=== PATIENT | male | born 1960 | race Caucasian/White ===

== ENCOUNTER 2024-10-23 07:13 | Emergency (ER) | payer MEDICARE, MEDICAID, SELFPAY ==
[2024-10-23 07:14] VITALS: BMI 19.6
[2024-10-23 07:24] VITALS: BP 145/78; PULSE 97; RESP 16; TEMP 36.6; O2SAT 89; BMI 23.0
--- NOTE | 2024-10-23 07:41 | PD.EDADULT ---
ED General RME/HPI General Chief complaint: General Adult/Misc Complain Stated complaint: NEEDS REFILL ON INHALER Time Seen by Provider: 10/23/24 07:21 Arrival date/time: 10/23/24 07:13 64 year old male present to emergency room with c/o of medication refill. pt report pcp was supposed to sent his albuterol and trelegy ellipta but never did. he has not inhaler for 2 weeks. which prompt patient to come to ED for refills. pt report his baseline sp02 is 90% and uses 3 liter NC daily. pt did not bring oxygen to ER. SEVERITY: Symptoms are described as being severe with limitations on activities of daily living CONTEXT: The patient is unable to identify any inciting events. DURATION/TIMING: The symptoms started approximately 2 weeks ASSOCIATED SYMPTOMS: The patient is unable to identify any other associated symptoms. MODIFYING FACTORS: The patient is unable to identify any alleviating or aggravating symptoms. PERTINENT ROS: no fevers, no pleuritic pain, no ripping or tearing sensations, denies any lower extremity edema and no unilateral swelling, no chest pain no nausea,vomiting, diarrhea, no dizziness/headache no rash no loc/syncope episode REVIEW OF SYSTEMS: See History of Present Illness - with the exception of those mentioned in the history of present illness, all other systems reviewed and reported as negative GENERAL: In general the patient is awake, interactive, in an emergency department gurney. HEAD/EYES/EARS/NOSE/THROAT: normo-cephalic, atraumatic, mucus membranes are moist, anicteric, palpebral conjunctiva is pink, trachea is midline. CARDIOVASCULAR: regular rate and regular rhythm, no murmurs, heart sounds are not distant, strong pulses in all four extremities that are equal and symmetric bilateral upper and lower extremities, normal capillary refill. CHEST/PULMONARY: normal chest rise and fall, good air movement, clear to auscultation bilaterally, normal inspiratory to expiratory ratios without evidence of respiratory distress. NECK: No midline/Paraspinal tenderness, no step off ROM/Strenght intact No Kernig and bruzinski sign. No trauma ABDOMEN: soft, not tender, no masses appreciated BACK: normal range of motion without pain. NEUROLOGICAL: cranio-facial features are symmetric, moves all four extremities equally without obvious limitations or weakness. EXTREMITY: no tenderness to palpation over the long bones or large joints of the bilateral upper and lower extremities, no joint swelling, no joint erythema, no signs of trauma, no unilateral leg swelling and no peripheral edema. SKIN: warm, dry, well-perfused, no jaundice, no rash, no telangiectasias or petechia. PSYCH: calm, cooperative, no evidence of psychosis or agitation Related Data Home Medications ?Medication ?Instructions ?Recorded ?Confirmed fluoxetine 40 mg capsule 40 mg PO TID 03/27/20 06/09/24 pantoprazole 40 mg tablet,delayed 40 mg PO QDAY 03/27/20 06/09/24 release pregabalin 75 mg capsule 75 mg PO BID 03/27/20 06/09/24 fluticasone fur. 100 mcg-umeclid 1 inh inhalation BID 08/18/20 06/09/24 62.5 mcg-vilant 25 mcg inhalat.powder (Trelegy Ellipta) furosemide 20 mg tablet 20 mg PO QDAY 06/27/21 06/09/24 ondansetron HCl 4 mg tablet 4 mg PO Q6H PRN Nausea 06/27/21 06/09/24 potassium chloride 8 mEq 8 meq PO QDAY 06/27/21 06/09/24 tablet,extended release folic acid 1 mg tablet 1 mg PO QDAY 10/25/21 06/09/24 hydrocodone 7.5 mg-acetaminophen 1 tab PO BID 02/12/22 06/09/24 325 mg tablet Held on 06/09/24. Instructions: Resume on 06/10/24. Previous Rx's ?Medication ?Instructions ?Recorded albuterol sulfate 90 mcg/actuation 1 puff inhalation QID PRN 10/23/24 aerosol inhaler shortness of breath or wheezing #8.5 grams fluticasone fur. 100 mcg-umeclid 1 inh inhalation Q24H #60 ea 10/23/24 62.5 mcg-vilant 25 mcg inhalat.powder (Trelegy Ellipta) Allergies Allergy/AdvReac Type Severity Reaction Status Date / Time tomato Allergy Intermediate INTESTINAL Verified 10/23/24 07:15 PAIN,RASH EGGS Allergy Mild Rash Uncoded 10/23/24 07:15 Course Course Course Narrative: medication refill pt denies any new symptoms pt decline any further testing, just want breathing tx and refills. Quality Measures none Orders Category Date Time Status Albuterol/Ipratr Rt Salima [Duoneb Rt Salima] Med 10/23/24 07:35 Discontinued 3 ml INH X1 ONE Reevaluation(s) Reevaluation #1: pt is feeling better after tx. Vital Signs Vital signs: Vital Signs Temperature 97.9 F 10/23/24 07:24 Pulse Rate 97 10/23/24 07:24 Respiratory Rate 16 10/23/24 07:24 Blood Pressure 145/78 H 10/23/24 07:24 Pulse Oximetry (%) 89 L 10/23/24 07:24 Oxygen Delivery Method Room Air 10/23/24 07:24 MDM Patient data External records reviewed:: [facility] previous records Clinical information provided by:: patient Social determinants that could affect healthcare access:: none Patient has the following chronic illnesses:: COPD, Asthma How is presenting disease/condition affected by chronic disease/condition?: exacerbated by Evaluation data The following diagnostics were reviewed and interpreted by me:: other (specify) (n/a ) Lab and/or radiology exams considered but not ordered:: n/a Interpretation Summary: n/a Medications Medications considered but not ordered:: n/a Medication administrations:: Medication Administration History Discontinued Medications Albuterol/Ipratropium (Albuterol/Ipratropium (Duoneb) Rt Salima 3 Ml Nebu) 3 ml INH X1 ONE Stop: 10/23/24 07:36 Last Admin: 10/23/24 07:52 Dose: 3 ml Documented By: TIP as stated above Consultations Consultation(s) initiated? (list below): No Diagnosis Differential Diagnosis ED Complaint MDM: copd, asthma medication refill Most likely diagnosis given after review of the tests above:: medication refill Admission Indicated Admission indicated?: not indicated Explain why admission is indicated or not indicated:: n/a Admission Request Was there a request for admission?: No Disposition Plan Disposition Plan: Discharge Discharge Attestation Discharge Attestation: The patient and all family members were given an opportunity to ask questions and understood the discharge instructions. Discharge instructions specifically effects, indications for sooner follow up or return to the emergency department, and the expected course of current diagnosis. Patient condition: Stable Medical Decision Making Differential Diagnosis Differential Diagnosis: copd, asthma medication refill Discharge Plan Plan Patient Disposition: HOME (Self Care) Health Concerns: Follow with PMD as directed Return to ED if sx worsen Prescriptions/Referrals Prescriptions/Med Rec: New albuterol sulfate 90 mcg/actuation HFA aerosol inhaler 1 puff inhalation QID PRN (Reason: shortness of breath or wheezing) Qty: 8.5 0RF Trelegy Ellipta 100-62.5-25 mcg blister with device 1 inh inhalation Q24H Qty: 60 0RF No Action folic acid 1 mg tablet 1 mg PO QDAY pantoprazole 40 mg tablet,delayed release (DR/EC) 40 mg PO QDAY fluoxetine 40 mg capsule 40 mg PO TID pregabalin 75 mg capsule 75 mg PO BID Trelegy Ellipta 100-62.5-25 mcg blister with device 1 inh INHALATION BID ondansetron HCl 4 mg tablet 4 mg PO Q6H PRN (Reason: Nausea) potassium chloride 8 mEq tablet extended release 8 meq PO QDAY furosemide 20 mg tablet 20 mg PO QDAY hydrocodone-acetaminophen 7.5-325 mg tablet 1 tab PO BID Problem List Clinical Impression: Medication refill, COPD (chronic obstructive pulmonary disease) Patient/Caregiver Discharge Instructions Education Materials: Asthma and COPD Print Language: Malay Stand Alone Forms: [facility] Award Info., Patient Portal Info Letter
[2024-10-23] MEDS: ALBUTEROL/IPRATROPIUM (Duoneb) RT SOL 3 ML NEBU INH (07:52)
[2024-10-23 07:53] VITALS: PULSE 90; RESP 18; O2SAT 98
== END 2024-10-23 09:10 | disposition home or self-care (01) ==
LOC: SERX 08:10
PROVIDERS: Emergency Provider Emergency Medicine; PCP Physician Assistant
DX: Z76.0 Encounter for issue of repeat prescription (principal); J44.89 Other specified chronic obstructive pulmonary disease
CPT/HCPCS: 94640; 99283; A9270

== ENCOUNTER 2024-12-16 18:07 | Emergency (ER) | payer MEDICARE, MEDICAID, SELFPAY ==
[2024-12-16 18:07] VITALS: BMI 19.6
[2024-12-16 19:20] VITALS: BP 113/76; PULSE 93; RESP 20; TEMP 36.9; O2SAT 91
== END 2024-12-16 19:54 | disposition left against medical advice (07) ==
LOC: SERX 20:01
PROVIDERS: Emergency Provider Emergency Medicine
DX: Z53.21 Procedure and treatment not carried out due to patient leaving prior to being seen by health care provider (principal)
CPT/HCPCS: 87400; 87811; 99281

== ENCOUNTER → 2024-12-21 | Outpatient (CLI) | payer MEDICARE, MEDICAID, SELFPAY ==
--- NOTE | 2024-12-21 13:00 | XR_ITS ---
Examination: CT chest, without intravenous contrast. Sagittal and coronal 2-D reconstructions. Exam date and time: December 21, 2024 1308 hours INDICATIONS: Smoking history 50 years, 4 mm pulmonary nodule left upper lobe 6 mm pulmonary no right upper lobe on CT chest December 02, 2023 CTDI:vol (mGy) 8.84 DLP: (mGycm) 415 Technique: Multiple 3.0 mm axial sections of the chest to been obtained. Bone and lung density settings are obtained. Sagittal and coronal 2-D reconstructions have been obtained. Low dose protocols were performed. One or more of the following dose reduction techniques were used; automated exposure control, adjustment of the mA and/or KV according to patient size, use of iterative reconstruction technique. Findings: No thoracic aortic aneurysm dilatation Pulmonary artery segments are not enlarged. No paratracheal tracheobronchial or bronchopulmonary adenopathy. Multiple new bilateral pulmonary nodules, greater than 20 nodules, including 13 mm pulmonary nodule right upper lobe image 168 Atelectasis in the left lower lobe No visualized liver or splenic lesion Contracted gallbladder IMPRESSION: Multiple new pulmonary nodules bilaterally compared to the prior CT chest study, including 13 mm pulmonary nodule right upper lobe, differential would include metastatic pulmonary nodular disease, suggest continued follow-up
== END | disposition home or self-care (01) ==
LOC: CCTX 12:48
PROVIDERS: PCP Physician Assistant; Referring Provider Physician Assistant; Visit Provider Physician Assistant
DX: R91.8 Other nonspecific abnormal finding of lung field (principal)
CPT/HCPCS: 71250

== ENCOUNTER → 2025-04-12 | Outpatient (CLI) | payer MEDICARE, MEDICAID, SELFPAY ==
--- NOTE | 2025-04-12 13:15 | XR_ITS ---
EXAMINATION: PET/CT FUSION SKULL TO THIGH EXAM DATE AND TIME: April 12, 2025 at 1403 hours, comparison CT chest abdomen pelvis June 20, 2021, CT chest December 21, 2024 INDICATIONS: Diagnosis solitary pulmonary nodule, multiple new pulmonary nodules, greater than [address] chest December 21, 2024, smoking history 50 years CTDI:vol (mGy) 4.26 DLP: (mGycm) 190 PROCEDURE: 16.3 mCi FDG was administered intravenously To allow for distribution and uptake of radiotracer, the patient was allowed to rest quietly in a shielded room. Imaging was performed on an integrated 16-slice PET/CT scanner, with scanning from the skull base to the mid thigh. Serum blood glucose at the time of the injection was measured 71 mg/dL. CT scanning was performed without oral or intravenous contrast material. FINDINGS: Head and Neck: Hypermetabolic right ethmoid sphenoid air cells Chest: Weakly hypermetabolic anterior segment right upper lobe 15 mm pulmonary nodule Additional 2 to 3 mm pulmonary nodules COPD Abdomen and Pelvis: There is no shanta hypermetabolism in retroperitoneal or pelvic chains. The spleen is normal in size and FDG avidity. Musculoskeletal: Marrow uptake is within normal range. IMPRESSION: 15 mm pulmonary nodule right upper lobe on this low resolution CT chest without contrast Recommend repeat CT chest without contrast in two months to compare with the CT chest December 21, 2024
== END | disposition home or self-care (01) ==
LOC: CDIM 12:36
PROVIDERS: PCP Physician Assistant; Referring Provider Specialist; Visit Provider Specialist
DX: R91.1 Solitary pulmonary nodule (principal)
CPT/HCPCS: 78815; A9552

== ENCOUNTER 2025-04-20 14:44 | Emergency (ER) | payer MEDICARE, MEDICAID, SELFPAY ==
--- NOTE | 2025-04-20 14:51 | EKG_ITS ---
[facility] Test Date: 2025-04-20 Pat Name: NARDA GARCIA Department: Room: - Gender: Male [employer] Floorperson: : 1960 Requested By: ED Temporary Provider Order Number: [id number] Reading MD: ED Temporary Provider Measurements Intervals [place] Rate: 82 P: 77 DC: 143 QRS: 32 QRSD: 105 T: 71 QT: 377 QTc: 443 Interpretive Statements SINUS RHYTHM Compared to ECG 03/10/2023 11:45:40 Incomplete right bundle-branch block no longer present /store/S0/[id number]/ecg/[id number].pdf
[2025-04-20 15:05] VITALS: BP 99/67; PULSE 78; RESP 20; TEMP 36.5; O2SAT 92
--- NOTE | 2025-04-20 15:06 | XR_ITS ---
Examination: CT brain head without contrast. 2-D sagittal coronal reconstructions Date and time of exam:04/20/2025, 3:27 PM CTDI: vol (mGy):50.1 DLP: (mGycm):1084 Technique: Multiple CT axial sections of the brain have been obtained, 5 mm slice thickness. Contrast has not been administered. 2-D sagittal, coronal reconstructions have been obtained Low dose protocols were performed. One or more of the following dose reduction techniques were used; automated exposure control, adjustment of the mA and/or KV according to patient size, use of iterative reconstruction technique. Findings: No significant ventricular enlargement. Intra-axial or extra-axial hemorrhage density is not seen. No mass effect or midline shift Basal cisterns are not remarkable. Fourth ventricle is midline. Complete opacification the right maxillary, sphenoid and ethmoid sinuses. Ill-defined lucencies/poor visualization of the medial right maxillary sinus schmidt and schmidt of the right ethmoid air cells. Impression: Negative for acute hemorrhage, mass effect or midline shift Complete opacification the right maxillary, ethmoid and sphenoid sinuses. Poor visualization of the medial wall of the right maxillary sinus and schmidt the right ethmoid air cells. Findings suggestive of possible erosive/destructive changes..
--- NOTE | 2025-04-20 15:06 | XR_ITS ---
Exam: Chest PA, lateral 2 views Technique: Chest upright PA lateral 2 views Date and time of exam: 04/20/2025, 3:11 PM INDICATION: Chest pain COMPARISON: 03/10/2020 Findings: Lungs are hyperinflated Chronic blunting of the left costophrenic angle with possible small pleural effusion. Normal heart size. No mediastinal adenopathy. No acute fracture No pulmonary edema or pneumonia. Impression: Hyperinflation consistent with COPD Chronic blunting of the left costophrenic angle with possible small pleural effusion No acute cardiopulmonary process.
--- NOTE | 2025-04-20 15:07 | EDRME_ITS ---
Rapid Medical Screening Exam [facility] [place] Arrival date/time: 04/20/25 14:44 64-year-old male with psychiatric disorder presents to the Emergency Department for complaints of generalized fatigue and weakness for patient's family member patient has been intermittently altered for the last 3 days. Currently patient GCS is 15 answering all questions appropriately no focal deficits noted Chief Complaint: Anxiety Vital signs: Vital Signs Temperature 97.7 F 04/20/25 15:05 Pulse Rate 78 04/20/25 15:05 Respiratory Rate 20 04/20/25 15:05 Blood Pressure 99/67 04/20/25 15:05 Pulse Oximetry (%) 92 L 04/20/25 15:05 Oxygen Delivery Method Room Air 04/20/25 15:05
[2025-04-20 16:13] LABS: Collection Type, Urine Clean Catch; Squamous Epithelial Cell,Urine 0 /hpf (0-5)
[2025-04-20 16:13] LABS: Basophils # (Auto) 0.1 Thou/mm3 (0.0-0.2); Basophils % (Auto) 1 % (0-2.5); Eosinophils # (Auto) 0.2 Thou/mm3 (0.0-0.5); Eosinophils % (Auto) 3 % (0-10); Hematocrit 42.8 % (41.0-53.0); Hemoglobin 13.9 g/dL (13.5-16.0); Immature Granulocytes Auto 0.02 Thou/mm3 (0.00-0.00); Lymphocytes # (Auto) 0.9 Thou/mm3 (1.0-4.8); Lymphocytes % (Auto) 13 % (10-50); Mean Corpuscular HGB Conc 32.5 g/dl (31.0-37.0); Mean Corpuscular Hemoglobin 32.0 pg (25.0-35.0); Mean Corpuscular Volume 98 fL (80-100); Monocytes # (Auto) 0.6 Thou/mm3 (0.0-0.8); Monocytes % (Auto) 9 % (0-12); Neutrophils # (Auto) 4.9 Thou/mm3 (1.8-7.7); Neutrophils % (Auto) 74 % (37-80); Nucleated Red Blood Cell # 0.00 Thou/mm3 (0.00-0.00); Nucleated Red Blood Cell % 0 /100 WBC (0); Platelet Count 257 Thou/mm3 (140-440); RDW Standard Deviation 50.7 fL (35.1-43.9); Red Blood Count 4.35 Miln/mm3 (4.50-5.90); White Blood Count 6.6 Thou/mm3 (3.8-10.6)
[2025-04-20 16:26] LABS: Amphetamine/Methamp Scrn,U Negative (Negative); Barbiturate Screen,Urine Negative (Negative); Benzodiazepines Screen,Urine Negative (Negative); Benzoylecgonine Screen, Ur Negative (Negative); Fentanyl Screen,Urine Negative (Negative); Opiate Screen,Urine Positive (Negative); THC Screen,Urine Positive (Negative)
[2025-04-20 16:31] LABS: Bacteria,Urine Rare; Bilirubin,Urine Negative (Negative); Blood,Urine Negative (Negative); Clarity,Urine Clear (Clear/Hazy); Color,Urine Yellow (Lt Yel-Yel); Culture Indicated,Urine Not Indicated; Glucose, Urine Negative (Negative); Ketones,Urine Negative (Negative); Leukocyte Esterase,Urine Negative (Negative); Nitrite,Urine Negative (Negative); PH,Urine 6.5 (5.0-7.0); Protein,Urine Trace (Neg - Trace); RBC,Urine 2 /hpf (0-3); Specific Gravity,Urine 1.020 (1.001-1.035); Urobilinogen,Urine Negative mg/dL (0.0-1.0); WBC,Urine 2 /hpf (0-5)
[2025-04-20 16:36] LABS: B-Type Natriuretic Peptide 45 pg/mL (0-100)
[2025-04-20 16:44] LABS: INR 1.0 (0.9-1.3); Partial Thromboplastin Time 27.3 Seconds (22.0-36.0); Prothrombin Time 11.0 Seconds (9.0-12.2)
[2025-04-20 16:53] LABS: Alanine Aminotransferase < 7 U/L (10-49); Albumin, Serum 4.0 gm/dL (3.4-4.8); Albumin/Globulin Ratio 1.3 (1.2-2.2); Alkaline Phosphatase 116 U/L (46-116); Anion Gap 6 (7-16); Aspartate Amino Transferase 11 U/L (0-34); BUN/Creatinine Ratio 8 Ratio (12-20); Bilirubin,Total 0.4 mg/dL (0.3-1.2); Blood Urea Nitrogen 6 mg/dL (9-23); Calcium 9.9 mg/dL (8.3-10.6); Calcium (Corrected) 9.9 mg/dL (8.5-10.1); Carbon Dioxide 32.6 mMol/L (20.0-31.0); Chloride 102 mMol/L (98-107); Creatinine (Component) 0.8 mg/dL (0.6-1.3); Estimated Creatinine Clearance 101.7 mL/min (>60); Globulin 3.2 gm/dL (2.3-3.5); Glucose 98 mg/dL (74-106); Lipase 20 U/L (12-53); Magnesium 1.8 mg/dL (1.6-2.6); Osmolality,Calculated 278 (275-295); Potassium 4.0 mMol/L (3.4-5.1); Sodium 141 mMol/L (136-145); Total Protein 7.2 gm/dL (5.7-8.2); Troponin I < 0.020 ng/mL (0.0-0.045); eGFR > 60 See Note
[2025-04-20 18:03] VITALS: BP 131/78; PULSE 76; RESP 22; TEMP 36.4; O2SAT 90
--- NOTE | 2025-04-20 18:10 | PD.EDANX ---
ED Anxiety RME/HPI General Chief Complaint: Anxiety Stated Complaint: ANXIETY, ALTERED MENTAL, CP, ABD PAIN X 72 HRS Time Seen by Provider: 04/20/25 18:23 Arrival date/time: 04/20/25 14:44 RME / HPI RME / HPI narrative: 04/20/25 14:44 64-year-old male with psychiatric disorder presents to the Emergency Department for complaints of generalized fatigue and weakness for patient's family member patient has been intermittently altered for the last 3 days. Currently patient GCS is 15 answering all questions appropriately no focal deficits noted -------- Dr. Humphrey?s Main ED Evaluation: 64yo male with a history of COPD here with generalized abdominal pain x 3 days that has been progressively increasing, described as cramping and aching in nature with a sharp component. Associated nausea and vomiting x2 episodes today. No diarrhea or urinary irritative symptoms. Pain worsens with PO intake. PMH includes CAD and COPD. PSH includes appendectomy. Social history includes long-term smoker, but diminished intake, and occasional marijuana use. No alcoholism. Related Data Home Medications ?Medication ?Instructions ?Recorded ?Confirmed fluoxetine 40 mg capsule 40 mg PO TID 03/27/20 06/09/24 pantoprazole 40 mg tablet,delayed 40 mg PO QDAY 03/27/20 06/09/24 release pregabalin 75 mg capsule 75 mg PO BID 03/27/20 06/09/24 fluticasone fur. 100 mcg-umeclid 1 inh inhalation BID 08/18/20 06/09/24 62.5 mcg-vilant 25 mcg inhalat.powder (Trelegy Ellipta) furosemide 20 mg tablet 20 mg PO QDAY 06/27/21 06/09/24 ondansetron HCl 4 mg tablet 4 mg PO Q6H PRN Nausea 06/27/21 06/09/24 potassium chloride 8 mEq 8 meq PO QDAY 06/27/21 06/09/24 tablet,extended release folic acid 1 mg tablet 1 mg PO QDAY 10/25/21 06/09/24 hydrocodone 7.5 mg-acetaminophen 1 tab PO BID 02/12/22 06/09/24 325 mg tablet Held on 06/09/24. Instructions: Resume on 06/10/24. Previous Rx's ?Medication ?Instructions ?Recorded albuterol sulfate 90 mcg/actuation 1 puff inhalation QID PRN 10/23/24 aerosol inhaler shortness of breath or wheezing #8.5 grams fluticasone fur. 100 mcg-umeclid 1 inh inhalation Q24H #60 ea 10/23/24 62.5 mcg-vilant 25 mcg inhalat.powder (Trelegy Ellipta) hyoscyamine sulfate 0.125 mg 0.125 mg PO BID cramping #10 tabs 04/20/25 tablet (Levsin) Allergies Allergy/AdvReac Type Severity Reaction Status Date / Time tomato Allergy Intermediate INTESTINAL Verified 04/20/25 14:50 PAIN,RASH EGGS Allergy Mild Rash Uncoded 04/20/25 14:50 Review of Systems Review of Systems Systems Reviewed: All systems reviewed, normal except as documented Past Medical History Past Medical History NEUROLOGIC: Positive Neurological Disorders and Peripheral Neuropathy; Negative Seizures CARDIAC: Positive Cardiac Disorders (leaky valve) and Angina; Negative Congestive Heart Failure RESPIRATORY: Positive Chronic Obstructive Pulmonary Disease (COPD) and Pneumonia; Negative Asthma, Emphysema or Tuberculosis GASTROINTESTINAL: Positive Gastrointestinal Disorders and Gastroesophageal Reflux Disease; Negative Hepatitis GENITOURINARY: Negative Genitourinary Disorders or Renal Disease MUSCULOSKELETAL: Negative Musculoskeletal Disorders ENT: Positive Cataracts (right) ENDOCRINE: Negative Endocrine Disorders, Diabetes Mellitus Type 1 or Diabetes Mellitus Type 2 HEMATOLOGIC: Positive Blood Disorders and Anemia; Negative Sickle Cell Disease PSYCHO/SOCIAL: Positive Schizophrenia, Depression and Anxiety; Negative Post Traumatic Stress Disorder OTHER HISTORY: Positive Blood Transfusions, Chicken Pox, Measles and Mumps; Negative Hospitalization, Autoimmune Disease, Shingles, Falls, Blood Transfusion Reaction, Anesthesia Reactions, Chemotherapy, Radiation Therapy, MRSA or Cancer Family History FAMILY HISTORY: Positive Family Cancer Surgical History SURGICAL: Positive Abdominal Surgery; Negative Cardiac Surgery, Endocrine Surgery or Transurethral Resection Social History SMOKING STATUS: Current every day smoker SUBSTANCE USE: marijuana OCCUPATION: Disabled ED Exam Narrative Physical exam: GENERAL APPEARANCE: alert and oriented x 4, chronically-ill appearing, no acute distress HEENT: Normocephalic, atraumatic; pupils equal, round, reactive to light; EOMI; mucous membranes pink, moist; oropharynx clear NECK: Supple LUNGS: Diminished breath sounds bilaterally HEART: Regular rate, regular rhythm; normal S1, S2; no murmurs ABDOMEN: non distended; soft, diffuse abdominal tenderness with slight guarding BACK: no CVA tenderness EXTREMITIES: atraumatic; no edema NEUROLOGIC: awake; alert and oriented x4; cranial nerves II-XII grossly intact; no focal sensory or motor deficits PSYCHIATRIC: appropriate mood and affect SKIN: warm, dry, normal color; no rashes Course Quality Measures none Orders Category Date Time Status EKG (ED ONLY) *Do not use* NOW Care 04/20/25 14:[address] head/brain wo con Stat Exams 04/20/25 15:06 Completed EKG (ED Only) Stat Exams 04/20/25 14:51 Draft XR chest 2V Stat Exams 04/20/25 15:06 Completed B-Type Natriuretic Peptide Stat Lab 04/20/25 15:49 Completed CBC Stat Lab 04/20/25 15:49 Completed Comprehensive Metabolic Panel Stat Lab 04/20/25 15:49 Completed Drug Screen,Urine Stat Lab 04/20/25 15:47 Completed Lipase Stat Lab 04/20/25 15:49 Completed Magnesium Stat Lab 04/20/25 15:49 Completed Partial Thromboplastin Time Stat Lab 04/20/25 15:49 Completed Prothrombin Time with INR Stat Lab 04/20/25 15:49 Completed Troponin I Stat Lab 04/20/25 15:49 Completed Urinalysis, C/S if Indicated Stat Lab 04/20/25 15:47 Completed Vital Signs Vital signs: Vital Signs Temperature 97.7 F 04/20/25 15:05 Pulse Rate 78 04/20/25 15:05 Respiratory Rate 20 04/20/25 15:05 Blood Pressure 99/67 04/20/25 15:05 Pulse Oximetry (%) 92 L 04/20/25 15:05 Oxygen Delivery Method Room Air 04/20/25 15:05 Anxiety MDM Narrative MDM Narrative: Scribe Attestation: 04/20/25 - Danika Be am scribing for and in the presence of Dr. Humphrey. 64yo male with a history of COPD here with generalized abdominal pain x 3 days that has been progressively increasing, described as cramping and aching in nature with a sharp component. Associated nausea and vomiting x2 episodes today. Please see PE findings. Lab markers demonstrate normal WBC count, no anemia or thrombocytopenia. Chemistries without renal insufficiency, shows CO2 retention likely due to COPD, normal LFTs. UA without evidence of infection. Tox screen positive for marijuana and opiates. Patient referred for CT scan which failed to demonstrate evidence of acute abdominal process, but maybe shows a mild ileus without obstruction. Patient observed for an extended period of time and his abdominal exam remained unremarkable. Will treat for ileus. Recommend clear liquid diet for 24 hours, prescribe antiemetic/antispasmotic, recommend close follow-up with PMD in the next 5-7 days. Precaution instructions issues. Dx: ileus Patient data External records reviewed:: [facility] previous records (Per chart review, patient was seen here on 10/23/24 for COPD.) Clinical information provided by:: patient Social determinants that could affect healthcare access:: none Patient has the following chronic illnesses:: COPD How is presenting disease/condition affected by chronic disease/condition?: uneffected by Evaluation data The following diagnostics were reviewed and interpreted by me:: lab results, radiology exam(s) and EKG tracing(s) Lab and/or radiology exams considered but not ordered:: none Interpretation Summary: EKG done at 1501, sinus rhythm, rate of 82, no acute pathological ST segment changes, no ectopy, normal intervals, left axis deviation, according to my interpretation. [facility] Report Signed Patient: NARDA GARCIA. Record#: [id number] Birthdate: 1960 Age/Sex: 64 / M Location: [facility] Attending Dr: Ordering Physician: Ehsan MURRY)Alec NP Date of Service: 04/20/25 Procedure(s): XR chest 2V Accession Number(s): [id number] cc: Ehsan MURRY)Alec NP; Eliud Oakes MD; Ifeoma Hobbs PA-C~ Exam: Chest PA, lateral 2 views Technique: Chest upright PA lateral 2 views Date and time of exam: 04/20/2025, 3:11 PM INDICATION: Chest pain COMPARISON: 03/10/2020 Findings: Lungs are hyperinflated Chronic blunting of the left costophrenic angle with possible small pleural effusion. Normal heart size. No mediastinal adenopathy. No acute fracture No pulmonary edema or pneumonia. Impression: Hyperinflation consistent with COPD Chronic blunting of the left costophrenic angle with possible small pleural effusion No acute cardiopulmonary process. Dictated By: Eliud Oakes MD Signed By: <Electronically signed by Eliud Oakes MD in OV> 04/20/25 1540 [facility] Report Signed Patient: NARDA GARCIA. Record#: [id number] Birthdate: 1960 Age/Sex: 64 / M [facility] Attending Dr: Ordering Physician: Ehsan MURRY),Alec TOPETE Date of Service: 04/20/25 Procedure(s): CT head/brain wo con Accession Number(s): [id number] cc: Ehsan MURRY),Alec TOPETE; Eliud Oakes MD; Ifeoma Hobbs PA-C~ Examination: CT brain head without contrast. 2-D sagittal coronal reconstructions Date and time of exam:04/20/2025, 3:27 PM CTDI: vol (mGy):50.1 DLP: (mGycm):1084 Technique: Multiple CT axial sections of the brain have been obtained, 5 mm slice thickness. Contrast has not been administered. 2-D sagittal, coronal reconstructions have been obtained Low dose protocols were performed. One or more of the following dose reduction techniques were used; automated exposure control, adjustment of the mA and/or KV according to patient size, use of iterative reconstruction technique. Findings: No significant ventricular enlargement. Intra-axial or extra-axial hemorrhage density is not seen. No mass effect or midline shift Basal cisterns are not remarkable. Fourth ventricle is midline. Complete opacification the right maxillary, sphenoid and ethmoid sinuses. Ill-defined lucencies/poor visualization of the medial right maxillary sinus schmidt and schmidt of the right ethmoid air cells. Impression: Negative for acute hemorrhage, mass effect or midline shift Complete opacification the right maxillary, ethmoid and sphenoid sinuses. Poor visualization of the medial wall of the right maxillary sinus and schmidt the right ethmoid air cells. Findings suggestive of possible erosive/destructive changes. Dictated By: Eliud Oakes MD Signed By: <Electronically signed by Eliud Oakes MD in OV> 04/20/25 1604 [facility] Report Signed Patient: NARDA GARCIA Record#: [id number] Birthdate: 1960 Age/Sex: 64 / M Location: [facility] Attending Dr: Ordering Physician: Dexter Ward DO Date of Service: 04/20/25 Procedure(s): CT abdomen pelvis wo con Accession Number(s): [id number] cc: Dexter Ward DO; Ehsan Boyd MD; Ifeoma Hobbs PA-C~ Examination: CT abdomen and pelvis without contrast. Coronal 3-D reconstructions. Sagittal 2-D reconstructions. Date and time of exam:April 20, 2025, 1836 hrs. Indications: Lower abdominal pain today, clinical diagnosis colitis, CTDI: vol (mGy): 7.86 DLP: (mGycm): 489 Technique: Axial images of the abdomen have been obtained, 3 mm slice thickness Intravenous contrast material has not been administered. Low dose protocols were performed. One or more of the following dose reduction techniques were used; automated exposure control, adjustment of the mA and/or KV according to patient size, use of iterative reconstruction technique. Findings: No focal liver or splenic lesions No gallstones No pancreatic mass. 2 mm nonobstructing left renal calculus. Aortic calcification no aneurysmal dilatation. Absent appendix Minimal small bowel ileus No diverticulitis or colitis pattern. Normal seminal vesicles. Mild prostatomegaly No bladder mass Moderate osteopenia Impression: 2 mm nonobstructing left renal calculus Mild small bowel ileus No diverticulitis or nonspecific colitis pattern No bowel obstruction Dictated By: Ehsan Boyd MD Signed By: <Electronically signed by Ehsan Boyd MD in OV> 04/20/25 2026 Medications / Prescriptions Medications or Prescriptions considered but not ordered:: none Medication administrations:: none Consultations Consultation(s) initiated? (list below): No Diagnosis Differential diagnosis anxiety: other (constipation, SBO, ileus, gastritis, diverticulitis) Most likely diagnosis given after review of the tests above:: see clinical impression below Admission Indicated Admission indicated?: not indicated Admission Request Was there a request for admission?: No Disposition Plan Disposition Plan: Discharge Discharge Attestation Discharge Attestation: The patient and all family members were given an opportunity to ask questions and understood the discharge instructions. Discharge instructions specifically effects, indications for sooner follow up or return to the emergency department, and the expected course of current diagnosis. Patient condition: Stable Discharge Plan Plan Patient Disposition: HOME (Self Care) Discharge Disposition comment: Stable Prescriptions/Referrals Prescriptions/Med Rec: New hyoscyamine sulfate [Levsin] 0.125 mg tablet 0.125 mg PO BID Qty: 10 0RF No Action folic acid 1 mg tablet 1 mg PO QDAY pantoprazole 40 mg tablet,delayed release (DR/EC) 40 mg PO QDAY fluoxetine 40 mg capsule 40 mg PO TID pregabalin 75 mg capsule 75 mg PO BID Trelegy Ellipta 100-62.5-25 mcg blister with device 1 inh INHALATION BID ondansetron HCl 4 mg tablet 4 mg PO Q6H PRN (Reason: Nausea) potassium chloride 8 mEq tablet extended release 8 meq PO QDAY furosemide 20 mg tablet 20 mg PO QDAY hydrocodone-acetaminophen 7.5-325 mg tablet 1 tab PO BID albuterol sulfate 90 mcg/actuation HFA aerosol inhaler 1 puff inhalation QID PRN (Reason: shortness of breath or wheezing) Qty: 8.5 0RF Trelegy Ellipta 100-62.5-25 mcg blister with device 1 inh inhalation Q24H Qty: 60 0RF Referrals: Ifeoma Hobbs PA-C [Primary Care Provider] - In 1 week Problem List Clinical Impression: Ileus Patient/Caregiver Discharge Instructions Discharge Activity: activity as tolerated Education Materials: Ileus Additional Instructions: Clear liquid diet x 24 hours and advance as tolerated. Medication as directed. Attempt to reduce opioid intake. Print Language: Sami Stand Alone Forms: [facility] Award Info., Patient Portal Info Letter
--- NOTE | 2025-04-20 18:23 | XR_ITS ---
Examination: CT abdomen and pelvis without contrast. Coronal 3-D reconstructions. Sagittal 2-D reconstructions. Date and time of exam:April 20, 2025, 1836 hrs. Indications: Lower abdominal pain today, clinical diagnosis colitis, CTDI: vol (mGy): 7.86 DLP: (mGycm): 489 Technique: Axial images of the abdomen have been obtained, 3 mm slice thickness Intravenous contrast material has not been administered. Low dose protocols were performed. One or more of the following dose reduction techniques were used; automated exposure control, adjustment of the mA and/or KV according to patient size, use of iterative reconstruction technique. Findings: No focal liver or splenic lesions No gallstones No pancreatic mass. 2 mm nonobstructing left renal calculus. Aortic calcification no aneurysmal dilatation. Absent appendix Minimal small bowel ileus No diverticulitis or colitis pattern. Normal seminal vesicles. Mild prostatomegaly No bladder mass Moderate osteopenia Impression: 2 mm nonobstructing left renal calculus Mild small bowel ileus No diverticulitis or nonspecific colitis pattern No bowel obstruction
[2025-04-20] MEDS: KETOROLAC INJ 60 MG/2 ML VIAL 30 MG IM (20:36)
[2025-04-20 20:46] VITALS: BP 125/86; PULSE 85; RESP 14; TEMP 37; O2SAT 99
== END 2025-04-20 20:46 | disposition home or self-care (01) ==
PROVIDERS: Nurse Practitioner Primary Care; Emergency Provider Emergency Medicine; PCP Physician Assistant
DX: K56.7 Ileus, unspecified (principal); N20.0 Calculus of kidney; J98.4 Other disorders of lung; J34.89 Other specified disorders of nose and nasal sinuses; J44.9 Chronic obstructive pulmonary disease, unspecified; F17.210 Nicotine dependence, cigarettes, uncomplicated
CPT/HCPCS: 36415; 70450; 71046; 74176; 80053; 80307; 81001; 83690; 83735; 83880; 84484; 85025; 85610; 85730; 93005; 96372; 99284; J1885

== ENCOUNTER 2025-04-30 11:04 | Emergency (ER) | payer MEDICARE, MEDICAID, SELFPAY ==
[2025-04-30 11:04] VITALS: BMI 19.6
[2025-04-30 11:33] VITALS: BP 102/71; PULSE 93; RESP 19; TEMP 36.6; O2SAT 97
--- NOTE | 2025-04-30 11:47 | PD.EDRME ---
Rapid Medical Screening Exam E Arrival date/time: 04/30/25 11:04 This is a 64-year-old male that comes into the emergency room with complaints of abdominal pain, nausea, vomiting, diarrhea. Patient was seen here few days ago. Patient was told he had an ileus and also kidney stones. Patient states the pain is worse. I have greeted and performed a focused initial assessment of this patient. Initial appropriate labs ordered at this time. A comprehensive ED assessment and evaluation of the patient and analysis of all test and completion of medical decision making process will be conducted by additional ED provider. Chief Complaint: Abdominal Pain Time Seen by Provider: 04/30/25 11:31 Vital signs: Vital Signs Temperature 97.9 F 04/30/25 11:33 Pulse Rate 93 04/30/25 11:33 Respiratory Rate 19 04/30/25 11:33 Blood Pressure 102/71 04/30/25 11:33 Pulse Oximetry (%) 97 04/30/25 11:33 Oxygen Delivery Method Room Air 04/30/25 11:33
[2025-04-30] MEDS: ONDANSETRON INJ 2 MG/ML INJ 2 ML 4 MG IM (11:57)
[2025-04-30 12:20] LABS: Basophils # (Auto) 0.0 Thou/mm3 (0.0-0.2); Basophils % (Auto) 1 % (0-2.5); Eosinophils # (Auto) 0.1 Thou/mm3 (0.0-0.5); Eosinophils % (Auto) 1 % (0-10); Hematocrit 44.7 % (41.0-53.0); Hemoglobin 14.3 g/dL (13.5-16.0); Immature Granulocytes Auto 0.02 Thou/mm3 (0.00-0.00); Lymphocytes # (Auto) 0.7 Thou/mm3 (1.0-4.8); Lymphocytes % (Auto) 12 % (10-50); Mean Corpuscular HGB Conc 32.0 g/dl (31.0-37.0); Mean Corpuscular Hemoglobin 31.4 pg (25.0-35.0); Mean Corpuscular Volume 98 fL (80-100); Monocytes # (Auto) 0.6 Thou/mm3 (0.0-0.8); Monocytes % (Auto) 10 % (0-12); Neutrophils # (Auto) 4.6 Thou/mm3 (1.8-7.7); Neutrophils % (Auto) 76 % (37-80); Nucleated Red Blood Cell # 0.00 Thou/mm3 (0.00-0.00); Nucleated Red Blood Cell % 0 /100 WBC (0); Platelet Count 250 Thou/mm3 (140-440); RDW Standard Deviation 47.8 fL (35.1-43.9); Red Blood Count 4.55 Miln/mm3 (4.50-5.90); White Blood Count 6.0 Thou/mm3 (3.8-10.6)
[2025-04-30 13:11] LABS: Albumin, Serum 3.9 gm/dL (3.4-4.8); Albumin/Globulin Ratio 1.2 (1.2-2.2); Alkaline Phosphatase 98 U/L (46-116); Anion Gap 10 (7-16); Aspartate Amino Transferase < 10 U/L (0-34); BUN/Creatinine Ratio 6 Ratio (12-20); Bilirubin,Total 0.3 mg/dL (0.3-1.2); Blood Urea Nitrogen 5 mg/dL (9-23); Calcium 9.7 mg/dL (8.3-10.6); Calcium (Corrected) 9.8 mg/dL (8.5-10.1); Carbon Dioxide 30.0 mMol/L (20.0-31.0); Chloride 102 mMol/L (98-107); Creatinine (Component) 0.9 mg/dL (0.6-1.3); Estimated Creatinine Clearance 90.4 mL/min (>60); Globulin 3.2 gm/dL (2.3-3.5); Glucose 94 mg/dL (74-106); Lipase 24 U/L (12-53); Osmolality,Calculated 280 (275-295); Potassium 3.8 mMol/L (3.4-5.1); Sodium 142 mMol/L (136-145); Total Protein 7.1 gm/dL (5.7-8.2); eGFR > 60 See Note
[2025-04-30 13:16] LABS: Alanine Aminotransferase < 7 U/L (10-49)
--- NOTE | 2025-04-30 13:48 | PD.EDABDPN ---
ED Abdominal Pain RME/HPI General Chief Complaint: Abdominal Pain Stated complaint: ABD PAIN/NAUSEA x 7 DAYS Time seen by provider: 04/30/25 11:31 Arrival date/time: 04/30/25 11:04 RME / HPI RME / HPI narrative: 04/30/25 11:04 This is a 64-year-old male that comes into the emergency room with complaints of abdominal pain, nausea, vomiting, diarrhea. Patient was seen here few days ago. Patient was told he had an ileus and also kidney stones. Patient states the pain is worse. I have greeted and performed a focused initial assessment of this patient. Initial appropriate labs ordered at this time. A comprehensive ED assessment and evaluation of the patient and analysis of all test and completion of medical decision making process will be conducted by additional ED provider. Related Data Home Medications ?Medication ?Instructions ?Recorded ?Confirmed fluoxetine 40 mg capsule 40 mg PO TID 03/27/20 06/09/24 pantoprazole 40 mg tablet,delayed 40 mg PO QDAY 03/27/20 06/09/24 release pregabalin 75 mg capsule 75 mg PO BID 03/27/20 06/09/24 fluticasone fur. 100 mcg-umeclid 1 inh inhalation BID 08/18/20 06/09/24 62.5 mcg-vilant 25 mcg inhalat.powder (Trelegy Ellipta) furosemide 20 mg tablet 20 mg PO QDAY 06/27/21 06/09/24 ondansetron HCl 4 mg tablet 4 mg PO Q6H PRN Nausea 06/27/21 06/09/24 potassium chloride 8 mEq 8 meq PO QDAY 06/27/21 06/09/24 tablet,extended release folic acid 1 mg tablet 1 mg PO QDAY 10/25/21 06/09/24 hydrocodone 7.5 mg-acetaminophen 1 tab PO BID 02/12/22 06/09/24 325 mg tablet Held on 06/09/24. Instructions: Resume on 06/10/24. Previous Rx's ?Medication ?Instructions ?Recorded albuterol sulfate 90 mcg/actuation 1 puff inhalation QID PRN 10/23/24 aerosol inhaler shortness of breath or wheezing #8.5 grams fluticasone fur. 100 mcg-umeclid 1 inh inhalation Q24H #60 ea 10/23/24 62.5 mcg-vilant 25 mcg inhalat.powder (Trelegy Ellipta) hyoscyamine sulfate 0.125 mg 0.125 mg PO BID cramping #10 tabs 04/20/25 tablet (Levsin) hydrocodone 5 mg-acetaminophen 325 1 tab PO BID PRN pain #7 tabs 04/30/25 mg tablet naloxone 4 mg/actuation nasal 4 mg intranasal Q2M PRN opioid 04/30/25 spray (Narcan) overdose #2 ea tamsulosin 0.4 mg capsule 0.4 mg PO QDAY #14 caps 04/30/25 Allergies Allergy/AdvReac Type Severity Reaction Status Date / Time egg Allergy Severe Hives Verified 04/30/25 11:07 tomato Allergy Severe INTESTINAL Verified 04/30/25 11:07 PAIN,RASH Course Orders Category Date Time Status EKG (ED ONLY) *Do not use* NOW Care 04/30/25 15:12 Completed EKG (ED Only) Stat Exams 04/30/25 15:11 Ordered CBC Stat Lab 04/30/25 11:58 Completed Comprehensive Metabolic Panel Stat Lab 04/30/25 11:58 Completed Lipase Stat Lab 04/30/25 11:58 Completed Troponin I Stat Lab 04/30/25 11:58 Completed Ondansetron Inj [Zofran Inj] Med 04/30/25 11:51 Discontinued 4 mg IM X1 ONE oxyCODONE/APAP 5/325 [Percocet 5/325] Med 04/30/25 13:58 Discontinued 1 tab PO X1 ONE Vital Signs Vital signs: Vital Signs Temperature 97.9 F 04/30/25 11:33 Pulse Rate 93 04/30/25 11:33 Respiratory Rate 19 04/30/25 11:33 Blood Pressure 102/71 04/30/25 11:33 Pulse Oximetry (%) 97 04/30/25 11:33 Oxygen Delivery Method Room Air 04/30/25 11:33 Abdominal Pain MDM Medications / Prescriptions Medication administrations:: Medication Administration History Discontinued Medications Ondansetron HCl (Ondansetron Inj 2 Mg/Ml Inj 2 Ml) 4 mg IM X1 ONE; Protocol Stop: 04/30/25 11:52 Last Admin: 04/30/25 11:57 Dose: 4 mg Documented By: Oxycodone/Acetaminophen (Oxycodone/Apap 5/325 Tablet) 1 tab PO X1 ONE Stop: 04/30/25 13:59 Discharge Plan Plan Patient Disposition: Elopement Prescriptions/Referrals Prescriptions/Med Rec: New tamsulosin 0.4 mg capsule 0.4 mg PO QDAY Qty: 14 0RF hydrocodone-acetaminophen 5-325 mg tablet 1 tab PO BID MDD 2 pills PRN (Reason: pain) Qty: 7 0RF naloxone [Narcan] 4 mg/actuation spray,non-aerosol 4 mg intranasal Q2M PRN (Reason: opioid overdose) Qty: 2 0RF Rx Instructions: spray 1 dose into ONE nostril; alternate nostrils w each dose until help arrives No Action folic acid 1 mg tablet 1 mg PO QDAY pantoprazole 40 mg tablet,delayed release (DR/EC) 40 mg PO QDAY fluoxetine 40 mg capsule 40 mg PO TID pregabalin 75 mg capsule 75 mg PO BID Trelegy Ellipta 100-62.5-25 mcg blister with device 1 inh INHALATION BID ondansetron HCl 4 mg tablet 4 mg PO Q6H PRN (Reason: Nausea) potassium chloride 8 mEq tablet extended release 8 meq PO QDAY furosemide 20 mg tablet 20 mg PO QDAY hydrocodone-acetaminophen 7.5-325 mg tablet 1 tab PO BID albuterol sulfate 90 mcg/actuation HFA aerosol inhaler 1 puff inhalation QID PRN (Reason: shortness of breath or wheezing) Qty: 8.5 0RF Trelegy Ellipta 100-62.5-25 mcg blister with device 1 inh inhalation Q24H Qty: 60 0RF hyoscyamine sulfate [Levsin] 0.125 mg tablet 0.125 mg PO BID Qty: 10 0RF Referrals: Ifeoma Hobbs PA-C [Primary Care Provider, Family Practice] - In 1 week Problem List Clinical Impression: Renal colic Patient/Caregiver Discharge Instructions Education Materials: ED Kidney Stone w/ Colic Additional Instructions: Your labs today did not show any evidence of acute infection nor renal dysfunction. The CT scan that was performed approximately a week ago showed that you have a 2 mm kidney stone without evidence of obstructive pathology. It important that you follow-up with your primary care doctor and establish care with a urologist. Please hydrate well. Return immediately if you have worsening symptoms or new symptoms of concern. Print Language: Bulgarian Stand Alone Forms: [facility] Award Info., Patient Portal Info Letter
--- NOTE | 2025-04-30 13:58 | PD.EDABDPN ---
ED Abdominal Pain RME/HPI General Chief Complaint: Abdominal Pain Stated complaint: ABD PAIN/NAUSEA x 7 DAYS Time seen by provider: 04/30/25 11:31 Arrival date/time: 04/30/25 11:04 RME / HPI RME / HPI narrative: 04/30/25 11:04 This is a 64-year-old male that comes into the emergency room with complaints of abdominal pain, nausea, vomiting, diarrhea. Patient was seen here few days ago. Patient was told he had an ileus and also kidney stones. Patient states the pain is worse. I have greeted and performed a focused initial assessment of this patient. Initial appropriate labs ordered at this time. A comprehensive ED assessment and evaluation of the patient and analysis of all test and completion of medical decision making process will be conducted by additional ED provider. DR. LUNDBERG MAIN ED EVALUATION: 64 y/o male with Hx of COPD, GERD, and Angina and SHx of Appendectomy presents to ED c/o worsening abdominal pain, nausea and vomiting x approximately 8 days. Patient was seen here and treated with an injection and PO medication. Denies shortness of breath, dysuria, or bloody stool. Denies any recent travel or sick contacts. Patient has an oxygen machine at home used 4-5 times per day on 2.5 L. Patient reports no alcohol consumption in 17 years and no smoking for 5 years. Related Data Home Medications ?Medication ?Instructions ?Recorded ?Confirmed fluoxetine 40 mg capsule 40 mg PO TID 03/27/20 06/09/24 pantoprazole 40 mg tablet,delayed 40 mg PO QDAY 03/27/20 06/09/24 release pregabalin 75 mg capsule 75 mg PO BID 03/27/20 06/09/24 fluticasone fur. 100 mcg-umeclid 1 inh inhalation BID 08/18/20 06/09/24 62.5 mcg-vilant 25 mcg inhalat.powder (Trelegy Ellipta) furosemide 20 mg tablet 20 mg PO QDAY 06/27/21 06/09/24 ondansetron HCl 4 mg tablet 4 mg PO Q6H PRN Nausea 06/27/21 06/09/24 potassium chloride 8 mEq 8 meq PO QDAY 06/27/21 06/09/24 tablet,extended release folic acid 1 mg tablet 1 mg PO QDAY 10/25/21 06/09/24 hydrocodone 7.5 mg-acetaminophen 1 tab PO BID 02/12/22 06/09/24 325 mg tablet Held on 06/09/24. Instructions: Resume on 06/10/24. Previous Rx's ?Medication ?Instructions ?Recorded albuterol sulfate 90 mcg/actuation 1 puff inhalation QID PRN 10/23/24 aerosol inhaler shortness of breath or wheezing #8.5 grams fluticasone fur. 100 mcg-umeclid 1 inh inhalation Q24H #60 ea 10/23/24 62.5 mcg-vilant 25 mcg inhalat.powder (Trelegy Ellipta) hyoscyamine sulfate 0.125 mg 0.125 mg PO BID cramping #10 tabs 04/20/25 tablet (Levsin) hydrocodone 5 mg-acetaminophen 325 1 tab PO BID PRN pain #7 tabs 04/30/25 mg tablet naloxone 4 mg/actuation nasal 4 mg intranasal Q2M PRN opioid 04/30/25 spray (Narcan) overdose #2 ea tamsulosin 0.4 mg capsule 0.4 mg PO QDAY #14 caps 04/30/25 Allergies Allergy/AdvReac Type Severity Reaction Status Date / Time egg Allergy Severe Hives Verified 04/30/25 11:07 tomato Allergy Severe INTESTINAL Verified 04/30/25 11:07 PAIN,RASH Review of Systems Review of Systems Systems Reviewed: All systems reviewed, normal except as documented Past Medical History Past Medical History NEUROLOGIC: Positive Neurological Disorders and Peripheral Neuropathy CARDIAC: Positive Cardiac Disorders (leaky valve) and Angina RESPIRATORY: Positive Chronic Obstructive Pulmonary Disease (COPD) and Pneumonia GASTROINTESTINAL: Positive Gastrointestinal Disorders and Gastroesophageal Reflux Disease ENT: Positive Cataracts (right) HEMATOLOGIC: Positive Blood Disorders and Anemia PSYCHO/SOCIAL: Positive Schizophrenia, Depression and Anxiety OTHER HISTORY: Positive Blood Transfusions, Chicken Pox, Measles and Mumps Family History FAMILY HISTORY: Positive Family Cancer Surgical History SURGICAL: Positive Abdominal Surgery Social History SMOKING STATUS: Current every day smoker SUBSTANCE USE: marijuana ED Exam Narrative Physical exam: GEN. APPEARANCE: The patient is alert awake oriented X-3, chronically ill appearing but in no distress Patient has good eye contact. Patient is cooperative. Patient appears chronically ill with acute decomposition. VITALS: All vitals were reviewed and the pulse ox is 97%, normal HEENT: Normocephalic, atraumatic. Pupils are equal and reactive. Oral mucosa is moist. Patent Nares NECK: Supple, nontender, no thyromegaly, no meningismus, no JVD CHEST: Symmetrical, atraumatic, and with equal expansion , Nontender on palpation no deformity and no crepitus. CARDIOVASCULAR: Heart regular rhythm no murmur or gallop rub or extra beats. LUNGS: Clear to auscultation bilaterally with symmetrical chest rise. No laboring tachypnea or wheezing. No intercostal subcostal retraction. No rales and no rhonchi. ABDOMEN: Soft, flat, diffuse tenderness to palpation, no guarding or rebound tenderness. There are no abnormal masses palpated. Active and normal bowel sounds. EXTREMITIES: Nontender. No LE edema. No cyanosis. Patient is able to move all 4 extremities well, with full ROM and good CSM. SKIN: Warm and dry, no jaundice or rashes noted. NEURO: Patient is RESENDIZ x 4, Cranial nerves II through XII grossly intact. There is no focal neurologic deficits noted. GCS is 15, PNS and MAINTENANCE DEPARTMENT TECHNICIAN appear grossly intact. PSYCHIATRIC: Patient is in normal mood and affect. Course Quality Measures none Orders Category Date Time Status EKG (ED ONLY) *Do not use* NOW Care 04/30/25 15:12 Completed EKG (ED Only) Stat Exams 04/30/25 15:11 Ordered CBC Stat Lab 04/30/25 11:58 Completed Comprehensive Metabolic Panel Stat Lab 04/30/25 11:58 Completed Lipase Stat Lab 04/30/25 11:58 Completed Troponin I Stat Lab 04/30/25 11:58 Completed Ondansetron Inj [Zofran Inj] Med 04/30/25 11:51 Discontinued 4 mg IM X1 ONE oxyCODONE/APAP 5/325 [Percocet 5/325] Med 04/30/25 13:58 Discontinued 1 tab PO X1 ONE Vital Signs Vital signs: Vital Signs Temperature 97.9 F 04/30/25 11:33 Pulse Rate 93 04/30/25 11:33 Respiratory Rate 19 04/30/25 11:33 Blood Pressure 102/71 04/30/25 11:33 Pulse Oximetry (%) 97 04/30/25 11:33 Oxygen Delivery Method Room Air 04/30/25 11:33 Abdominal Pain MDM MDM Narrative MDM Narrative:: Scribe Attestation: I, Moon Glez, am scribing for and in the presence of Dr. Lundberg. Provider Notation: Although this document has been carefully reviewed, there may still be some phonetic and other typographical errors. These errors are purely grammatical due to imperfections in the software program and should not be construed in any way to compromise the substance of the patient's medical care during this visit. Patient is a 64-year-old male that seen emergency dept w/ concerns for diffuse abdominal pain and flank pain. Vital signs and exam as listed. Concern for urinary tract infection, pyelonephritis, urolithiasis, pancreatitis, ACS among others. Patient nonseptic nontoxic-appearing. Labs without acute hematologic or significant metabolic abnormality. No evidence of infection no evidence of renal dysfunction. chart review patient was recently seen in the emergency department had a CT scan done with contrast that identified a 2 mm kidney stone without obstructive pathology. On re-evaluation patient symptoms significantly improved, feels better. Labs reassuring. Given patient symptoms are similar to prior, concern the patient's pain is secondary to his kidney stone . Pending UA, if not infected Will discharge to home close return precautions follow-up with his primary care doctor as well as recommendation that he establish care with a urologist. Will prescribe medication for symptom relief. Patient eloped from emergency department before final evaluation. Patient data External records reviewed:: [facility] previous records (Reviewed prior ED records from 04/20/25. Patient was seen for Ileus.) Clinical information provided by:: patient Social determinants that could affect healthcare access:: none Patient has the following chronic illnesses:: Peripheral Neuropathy, Angina, Chronic Obstructive Pulmonary Disease, Gastroesophageal Reflux Disease, Cataracts (right), Anemia, Schizophrenia, Depression and Anxiety How is presenting disease/condition affected by chronic disease/condition?: exacerbated by Evaluation data The following diagnostics were reviewed and interpreted by me:: lab results Lab and/or radiology exams considered but not ordered:: None Interpretation Summary: See MDM above. Medications / Prescriptions Medications or Prescriptions considered but not ordered:: None Medication administrations:: Medication Administration History Discontinued Medications Ondansetron HCl (Ondansetron Inj 2 Mg/Ml Inj 2 Ml) 4 mg IM X1 ONE; Protocol Stop: 04/30/25 11:52 Last Admin: 04/30/25 11:57 Dose: 4 mg Documented By: Oxycodone/Acetaminophen (Oxycodone/Apap 5/325 Tablet) 1 tab PO X1 ONE Stop: 04/30/25 13:59 See above if any. Consultations Consultation(s) initiated? (list below): No Diagnosis Differential diagnosis abdominal pain: abdominal pain, calculus of kidney, constipation, diverticulitis, gastroenteritis, pancreatitis, small bowel obstruction and other (Gastritis) Most likely diagnosis given after review of the tests above:: Renal colic Admission Indicated Admission indicated?: not indicated Explain why admission is indicated or not indicated:: Patient does not meet admission criteria. Admission Request Was there a request for admission?: No Disposition Plan Disposition Plan: other (specify) (eloped) Discharge Plan Plan Patient Disposition: Elopement Prescriptions/Referrals Prescriptions/Med Rec: New tamsulosin 0.4 mg capsule 0.4 mg PO QDAY Qty: 14 0RF hydrocodone-acetaminophen 5-325 mg tablet 1 tab PO BID MDD 2 pills PRN (Reason: pain) Qty: 7 0RF naloxone [Narcan] 4 mg/actuation spray,non-aerosol 4 mg intranasal Q2M PRN (Reason: opioid overdose) Qty: 2 0RF Rx Instructions: spray 1 dose into ONE nostril; alternate nostrils w each dose until help arrives No Action folic acid 1 mg tablet 1 mg PO QDAY pantoprazole 40 mg tablet,delayed release (DR/EC) 40 mg PO QDAY fluoxetine 40 mg capsule 40 mg PO TID pregabalin 75 mg capsule 75 mg PO BID Trelegy Ellipta 100-62.5-25 mcg blister with device 1 inh INHALATION BID ondansetron HCl 4 mg tablet 4 mg PO Q6H PRN (Reason: Nausea) potassium chloride 8 mEq tablet extended release 8 meq PO QDAY furosemide 20 mg tablet 20 mg PO QDAY hydrocodone-acetaminophen 7.5-325 mg tablet 1 tab PO BID albuterol sulfate 90 mcg/actuation HFA aerosol inhaler 1 puff inhalation QID PRN (Reason: shortness of breath or wheezing) Qty: 8.5 0RF Trelegy Ellipta 100-62.5-25 mcg blister with device 1 inh inhalation Q24H Qty: 60 0RF hyoscyamine sulfate [Levsin] 0.125 mg tablet 0.125 mg PO BID Qty: 10 0RF Referrals: Ifeoma Hobbs PA-C [Primary Care Provider, Family Practice] - In 1 week Problem List Clinical Impression: Renal colic Patient/Caregiver Discharge Instructions Education Materials: ED Kidney Stone w/ Colic Additional Instructions: Your labs today did not show any evidence of acute infection nor renal dysfunction. The CT scan that was performed approximately a week ago showed that you have a 2 mm kidney stone without evidence of obstructive pathology. It important that you follow-up with your primary care doctor and establish care with a urologist. Please hydrate well. Return immediately if you have worsening symptoms or new symptoms of concern. Print Language: Amharic Stand Alone Forms: [facility] Award Info., Patient Portal Info Letter
--- NOTE | 2025-04-30 15:34 | PC.NURSE ---
called from lobby and no answer
--- NOTE | 2025-04-30 15:47 | PC.NURSE ---
CALLED FROM LOBBY AND NO ANSWER
[2025-04-30 16:14] LABS: Troponin I < 0.020 ng/mL (0.0-0.045)
--- NOTE | 2025-04-30 17:01 | PC.NURSE ---
CALLED FROM LOBBY AND NO ANSWER. PT NOT FOUND IN E.D. LOBBY OR OUTSIDE THE E.D.
== END 2025-04-30 17:02 | disposition left against medical advice (07) ==
PROVIDERS: Nurse Practitioner Family; Emergency Provider Emergency Medicine; PCP Physician Assistant
DX: N20.0 Calculus of kidney (principal); J44.9 Chronic obstructive pulmonary disease, unspecified; K21.9 Gastro-esophageal reflux disease without esophagitis; Z53.21 Procedure and treatment not carried out due to patient leaving prior to being seen by health care provider
CPT/HCPCS: 36415; 80053; 80307; 81001; 83690; 84484; 85025; 96372; 99283; J2405

== ENCOUNTER 2025-05-16 09:04 | Emergency (ER) | payer MEDICARE, MEDICAID, SELFPAY ==
[2025-05-16] VITALS (9 sets, daily range): BP systolic 101–130; BP diastolic 60–78; PULSE 76–102; RESP 18–22; TEMP 35.8–36.9; O2SAT 90–100; BMI 19.4
--- NOTE | 2025-05-16 09:24 | XR_ITS ---
Examination: AP chest single view Technique one AP portable upright chest single view Date and time: May 16, 2025 0934 hours, comparison April 20, 2025 INDICATIONS: Shortness of breath today. FINDINGS: COPD with significant hyperexpansion. Normal heart size. Mild scarring at the lung bases No lobar pneumonia or pulmonary edema IMPRESSION: COPD. Mild scarring at the lung bases
--- NOTE | 2025-05-16 09:24 | EKG_ITS ---
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
--- NOTE | 2025-05-16 09:26 | PD.EDSOB ---
ED SOB =RME/HPI General Chief Complaint: Shortness of Breath/Dyspnea Stated Complaint: SOB Time Seen by Provider: 05/16/25 09:24 Arrival date/time: 05/16/25 09:04 Mode of arrival: EMS Limitations: no limitations RME / HPI RME / HPI Narrative: Patient is a 64-year-old male with medical history notable for chronic smoking, intermittent hypoxia, pulmonary nodules is in Emergency Department concerns for shortness of breath. Patient has a history of emphysema, uses oxygen as needed, follows with a business development recruiter. Takes an inhaler. Does not know the names of his other medications. Has cut back on smoking since he has become oxygen dependent. Denies drugs and alcohol. No recent travels fevers chills nausea vomiting chest pain palpitations abdominal pain dysuria hematuria melena bloody stools. Related Data Home Medications ?Medication ?Instructions ?Recorded ?Confirmed fluoxetine 40 mg capsule 40 mg PO TID 03/27/20 06/09/24 pantoprazole 40 mg tablet,delayed 40 mg PO QDAY 03/27/20 06/09/24 release pregabalin 75 mg capsule 75 mg PO BID 03/27/20 06/09/24 fluticasone fur. 100 mcg-umeclid 1 inh inhalation BID 08/18/20 06/09/24 62.5 mcg-vilant 25 mcg inhalat.powder (Trelegy Ellipta) furosemide 20 mg tablet 20 mg PO QDAY 06/27/21 06/09/24 ondansetron HCl 4 mg tablet 4 mg PO Q6H PRN Nausea 06/27/21 06/09/24 potassium chloride 8 mEq 8 meq PO QDAY 06/27/21 06/09/24 tablet,extended release folic acid 1 mg tablet 1 mg PO QDAY 10/25/21 06/09/24 hydrocodone 7.5 mg-acetaminophen 1 tab PO BID 02/12/22 06/09/24 325 mg tablet Held on 06/09/24. Instructions: Resume on 06/10/24. Previous Rx's ?Medication ?Instructions ?Recorded albuterol sulfate 90 mcg/actuation 1 puff inhalation QID PRN 10/23/24 aerosol inhaler shortness of breath or wheezing #8.5 grams fluticasone fur. 100 mcg-umeclid 1 inh inhalation Q24H #60 ea 10/23/24 62.5 mcg-vilant 25 mcg inhalat.powder (Trelegy Ellipta) hyoscyamine sulfate 0.125 mg 0.125 mg PO BID cramping #10 tabs 04/20/25 tablet (Levsin) hydrocodone 5 mg-acetaminophen 325 1 tab PO BID PRN pain #7 tabs 04/30/25 mg tablet naloxone 4 mg/actuation nasal 4 mg intranasal Q2M PRN opioid 04/30/25 spray (Narcan) overdose #2 ea tamsulosin 0.4 mg capsule 0.4 mg PO QDAY #14 caps 04/30/25 Allergies Allergy/AdvReac Type Severity Reaction Status Date / Time egg Allergy Severe Hives Verified 05/16/25 09:30 tomato Allergy Severe INTESTINAL Verified 05/16/25 09:30 PAIN,RASH ED Exam General Limitations: Present no limitations General appearance: Present alert and in no apparent distress Head Head exam: Present atraumatic and normocephalic Eye Eye exam: Present normal appearance and PERRL ENT ENT exam: Present normal exam and normal oropharynx Neck Neck exam: Present normal inspection and full ROM Chest Chest inspection: Present normal inspection and symmetric chest wall rise Respiratory Respiratory exam: Present wheezes; Absent respiratory distress, stridor or accessory muscle use Abdominal Exam Abdominal exam: Present soft; Absent distention, tenderness or guarding Extremities Exam Extremities exam: Present normal inspection Back Exam Back exam: Present normal inspection Neurological Exam Neurological exam: Present alert, oriented X3 and CN II-XII intact; Absent motor sensory deficit Psychiatric Psychiatric exam: Present normal affect and normal mood Course Quality Measures none Orders Category Date Time Status CT Screening NOW Care 05/16/25 09:27 Completed EKG (ED ONLY) *Do not use* NOW Care 05/16/25 09:25 Completed Insert IV NOW Care 05/16/25 09:[address] angio chest Stat Exams 05/16/25 09:27 Completed CXR1 [XR chest 1V] Stat Exams 05/16/25 09:24 Completed EKG (ED Only) Stat Exams 05/16/25 09:24 Draft BNP [B-Type Natriuretic Peptide] Stat Lab 05/16/25 09:35 Completed CBC Stat Lab 05/16/25 09:35 Completed CMP [Comprehensive Metabolic Panel] Stat Lab 05/16/25 09:35 Completed Troponin I Stat Lab 05/16/25 09:35 Completed VBG [Venous Blood Gas] Stat Lab 05/16/25 09:35 Completed ALBUTEROL RT 0.5ml [Proventil Rt 0.5ml] Med 05/16/25 09:45 Discontinued 10 mg INH X1 ONE Albuterol/Ipratr Rt Salima [Duoneb Rt Salima] Med 05/16/25 09:24 Discontinued 10 ml INH X1 ONE Ipratropium [place] Rt Salima [Atrovent Rt Salima] Med 05/16/25 09:45 Discontinued 1 mg INH X1 ONE dexAMETHasone TAB [Decadron Tab] Med 05/16/25 09:24 Discontinued 10 mg PO X1 ONE dexAMETHasone TAB [Decadron Tab] Med 05/16/25 11:00 Discontinued 10 mg PO X1 ONE Vital Signs Vital signs: Vital Signs Temperature 96.4 F L 05/16/25 09:31 Pulse Rate 80 05/16/25 09:31 Respiratory Rate 22 H 05/16/25 09:31 Blood Pressure 130/78 05/16/25 09:31 Pulse Oximetry (%) 90 L 05/16/25 09:31 Oxygen Delivery Method Room Air 05/16/25 09:31 Shortness of Breath / Dyspnea MDM Narrative MDM Narrative:: Patient is a 64-year-old male is seen emerged from concerns for shortness of breath. Vital signs and exam as listed. Concern for ACS arrhythmia electrolyte abnormality viral syndrome pneumonia among others. Ordered labs EKG chest x-ray as well as CT angio chest. Also ordered steroids and a breathing treatment. Labs without any acute hematologic abnormality, no leukocytosis however does have a left shift of 83%. VBG pH 7.37, pCO2 62. No acute electrolyte abnormality. No significant transaminitis, troponin not elevated, BNP normal. Chest x-ray without any acute abnormalities. EKG sinus rhythm, normal intervals, nonspecific T wave changes, no cardiac alert. On reevaluation patient hemodynamically stable not distress, symptoms significantly improved. Patient is pending CT angio the chest and safe dispo. Patient data External records reviewed:: [facility] previous records and EMS form Clinical information provided by:: patient Social determinants that could affect healthcare access:: substance use Patient has the following chronic illnesses:: See MDM How is presenting disease/condition affected by chronic disease/condition?: exacerbated by Evaluation data The following diagnostics were reviewed and interpreted by me:: lab results, radiology exam(s) and EKG tracing(s) Lab and/or radiology exams considered but not ordered:: None Interpretation Summary: See [facility] Medications / Prescriptions Medications or Prescriptions considered but not ordered:: None Medication administrations:: Medication Administration History Discontinued Medications Albuterol (Albuterol Rt 2.5 Mg/0.5 Ml Nebu) 10 mg INH X1 ONE Stop: 05/16/25 09:46 Last Admin: 05/16/25 09:52 Dose: 10 mg Documented By: RICK Albuterol/Ipratropium (Albuterol/Ipratropium (Duoneb) Rt Salima 3 Ml Nebu) 10 ml INH X1 ONE Stop: 05/16/25 09:25 Last Admin: 05/16/25 11:03 Dose: Not Given Documented By: DMITRIY Non-Admin Reason: Duplicate Medication on eMAR Dexamethasone (Dexamethasone 1 Mg Tablet) 10 mg PO X1 ONE; Protocol Stop: 05/16/25 09:25 Last Admin: 05/16/25 10:38 Dose: Not Given Documented By: DMITRIY Non-Admin Reason: Duplicate Medication on eMAR Dexamethasone (Dexamethasone 4 Mg Tablet) 10 mg PO X1 ONE Stop: 05/16/25 11:01 Last Admin: 05/16/25 11:03 Dose: 10 mg Documented By: DMITRIY Ipratropium [place] (Ipratropium Rt 0.5 Mg/ 2.5 Ml Nebu) 1 mg INH X1 ONE Stop: 05/16/25 09:46 Last Admin: 05/16/25 09:52 Dose: 1 mg Documented By: RICK See above Consultations Consultation(s) initiated? (list below): No Diagnosis Shortness of Breath Differential Diagnosis: other Most likely diagnosis given after review of the tests above:: Shortness of breath Admission Indicated Admission indicated?: not indicated Admission Request Was there a request for admission?: No Disposition Plan Disposition Plan: other (specify) (signed out ) Discharge Plan Plan Patient Disposition: HOME (Self Care) Prescriptions/Referrals Prescriptions/Med Rec: No Action folic acid 1 mg tablet 1 mg PO QDAY pantoprazole 40 mg tablet,delayed release (DR/EC) 40 mg PO QDAY fluoxetine 40 mg capsule 40 mg PO TID pregabalin 75 mg capsule 75 mg PO BID Trelegy Ellipta 100-62.5-25 mcg blister with device 1 inh INHALATION BID ondansetron HCl 4 mg tablet 4 mg PO Q6H PRN (Reason: Nausea) potassium chloride 8 mEq tablet extended release 8 meq PO QDAY furosemide 20 mg tablet 20 mg PO QDAY hydrocodone-acetaminophen 7.5-325 mg tablet 1 tab PO BID tamsulosin 0.4 mg capsule 0.4 mg PO QDAY Qty: 14 0RF hydrocodone-acetaminophen 5-325 mg tablet 1 tab PO BID MDD 2 pills PRN (Reason: pain) Qty: 7 0RF naloxone [Narcan] 4 mg/actuation spray,non-aerosol 4 mg intranasal Q2M PRN (Reason: opioid overdose) Qty: 2 0RF Rx Instructions: spray 1 dose into ONE nostril; alternate nostrils w each dose until help arrives albuterol sulfate 90 mcg/actuation HFA aerosol inhaler 1 puff inhalation QID PRN (Reason: shortness of breath or wheezing) Qty: 8.5 0RF Trelegy Ellipta 100-62.5-25 mcg blister with device 1 inh inhalation Q24H Qty: 60 0RF hyoscyamine sulfate [Levsin] 0.125 mg tablet 0.125 mg PO BID Qty: 10 0RF Referrals: Ifeoma Hobbs PA-C [Primary Care Provider, Family Practice] - In 1 week Problem List Clinical Impression: Emphysema lung Patient/Caregiver Discharge Instructions Education Materials: COPD: Chronic Coughing Additional Instructions: Your labs, EKG and CT today were reassuring. I recommend that you follow-up with your business development recruiter this week. Return immediately if you have worsening symptoms or new symptoms of concern. Print Language: Kiswahili Stand Alone Forms: [facility] Award Info., Patient Portal Info Letter
--- NOTE | 2025-05-16 09:27 | XR_ITS ---
Examination: CTA chest with intravenous contrast 2-D reconstructions 3-D reconstructions, vascular Date and time of exam: May 16, 2025, 1723 hrs. Indications: Shortness of breath chest pain today CTDI: vol (mGy) 12.2 DLP: (mGycm) 300 and Technique: Multiple axial sections of the thorax have been obtained. 3 mm slice thickness, from below the hemidiaphragms to above the apices of the lungs. Mediastinal and lung density settings have been obtained. 2-D sagittal and coronal reconstructions. 3-D angiographic renderings, 3-D volume renderings, 3D post processing, vascular maximum intensity projections obtained. Contrast administered is 100 cc Isovue-370 intravenous. Low dose protocols were performed. One or more of the following dose reduction techniques were used; automated exposure control, adjustment of the mA and/or KV according to patient size, use of iterative reconstruction technique. Findings: Fluid/secretions in the trachea, axial image 30 No thoracic aortic aneurysmal dilatation Pulmonary artery segments are not enlarged No pulmonary artery emboli 13 mm pulmonary nodule right upper lobe image 156 3 mm pulmonary nodule right lower lobe image 168 2 mm pulmonary nodule right lower lobe image 176 3 mm pulmonary nodule left upper lobe image 207 COPD with areas of airspace destruction Mildly dilated bronchi throughout the lungs No lobar pneumonia No pulmonary edema No visualized liver or splenic lesion No gallstones No pancreatic or adrenal mass No hydronephrosis Impression: Negative for pulmonary artery emboli COPD Stable pulmonary nodules throughout the lungs compared with December 21, 2024, including 13 mm pulmonary nodule right upper lobe Mild bronchiectasis No pneumonia or pulmonary edema
[2025-05-16 09:48] LABS: Base Excess, Venous 8 (-3-3); O2 Saturation, Venous 28 % (96-97); PCO2, Venous 62 mmHg (36-56); PO2, Venous 18 mmHg (15-58); pH, Venous 7.37 (7.33-7.66)
[2025-05-16] MEDS: ALBUTEROL RT 2.5 MG/0.5 ML NEBU 10 MG INH (09:52)
[2025-05-16] MEDS: IPRATROPIUM RT 0.5 MG/ 2.5 ML NEBU 1 MG INH (09:52)
[2025-05-16 10:04] LABS: Basophils # (Auto) 0.0 Thou/mm3 (0.0-0.2); Basophils % (Auto) 1 % (0-2.5); Eosinophils # (Auto) 0.2 Thou/mm3 (0.0-0.5); Eosinophils % (Auto) 3 % (0-10); Hematocrit 43.5 % (41.0-53.0); Hemoglobin 13.8 g/dL (13.5-16.0); Immature Granulocytes Auto 0.02 Thou/mm3 (0.00-0.00); Lymphocytes # (Auto) 0.4 Thou/mm3 (1.0-4.8); Lymphocytes % (Auto) 7 % (10-50); Mean Corpuscular HGB Conc 31.7 g/dl (31.0-37.0); Mean Corpuscular Hemoglobin 31.7 pg (25.0-35.0); Mean Corpuscular Volume 100 fL (80-100); Monocytes # (Auto) 0.4 Thou/mm3 (0.0-0.8); Monocytes % (Auto) 6 % (0-12); Neutrophils # (Auto) 4.9 Thou/mm3 (1.8-7.7); Neutrophils % (Auto) 83 % (37-80); Nucleated Red Blood Cell # 0.00 Thou/mm3 (0.00-0.00); Nucleated Red Blood Cell % 0 /100 WBC (0); Platelet Count 215 Thou/mm3 (140-440); RDW Standard Deviation 49.9 fL (35.1-43.9); Red Blood Count 4.35 Miln/mm3 (4.50-5.90); White Blood Count 5.9 Thou/mm3 (3.8-10.6)
[2025-05-16 10:20] LABS: Alanine Aminotransferase < 7 U/L (10-49); Albumin, Serum 4.2 gm/dL (3.4-4.8); Albumin/Globulin Ratio 1.3 (1.2-2.2); Alkaline Phosphatase 123 U/L (46-116); Anion Gap 6 (7-16); Aspartate Amino Transferase 14 U/L (0-34); BUN/Creatinine Ratio 9 Ratio (12-20); Bilirubin,Total 0.5 mg/dL (0.3-1.2); Blood Urea Nitrogen 7 mg/dL (9-23); Calcium 9.7 mg/dL (8.3-10.6); Calcium (Corrected) 9.7 mg/dL (8.5-10.1); Carbon Dioxide 35.2 mMol/L (20.0-31.0); Chloride 101 mMol/L (98-107); Creatinine (Component) 0.8 mg/dL (0.6-1.3); Estimated Creatinine Clearance 100.5 mL/min (>60); Globulin 3.3 gm/dL (2.3-3.5); Glucose 98 mg/dL (74-106); Osmolality,Calculated 281 (275-295); Potassium 4.1 mMol/L (3.4-5.1); Sodium 142 mMol/L (136-145); Total Protein 7.5 gm/dL (5.7-8.2); Troponin I < 0.020 ng/mL (0.0-0.045); eGFR > 60 See Note
--- NOTE | 2025-05-16 10:35 | PC.NURSE ---
PATIENT IN TO ED FROM HOME FOR SHORTNESS OF BREATH. PATIENT HAS BEEN HAVING SHORTNESS OF BREATH FOR ABOUT 3 WEEKS NOW. PATIENT WAS SATURATING 92&% ON ROOM AIR. PATIENT HAD LIVE FLEAS AND TICKS ON GURNEY CRAWLING PATIENT MADE AWARE OF THIS. PATIENT CLOTHING REMOVED. VITALS STABLE. PATIENT RECEIVING BREATHING TREATMENT. PATIENT MOVED TO ED ROOM 8 FOR CONTACT PRECAUTION.
[2025-05-16 11:02] LABS: B-Type Natriuretic Peptide 63 pg/mL (0-100)
== END 2025-05-16 19:02 | disposition home or self-care (01) ==
PROVIDERS: Emergency Provider Emergency Medicine; PCP Physician Assistant
DX: J43.9 Emphysema, unspecified (principal); Z91.012 Allergy to eggs; Z91.018 Allergy to other foods
CPT/HCPCS: 36415; 71045; 71275; 80053; 82803; 83880; 84484; 85025; 93005; 94644; 99284; A4649; A9270; J8540; Q9967